=== PATIENT | female | born 1965 | race Caucasian/White ===

== ENCOUNTER → 2016-12-07 | Outpatient (CLI) | payer MEDICARE, MEDICAID ==
[~2016-12-07] MED LIST: ALPR2TAB2 PO; FLUO40CA9 PO; OXYC10TA32; PROP60CA PO; TRAZ100T15
== END | disposition home or self-care (01) ==
LOC: CFH 13:58
PROVIDERS: ATTEND Internal Medicine Cardiovascular Disease
DX: R07.9 Chest pain, unspecified (principal)
CPT/HCPCS: 93306

== ENCOUNTER 2018-06-13 11:14 | Emergency (ER) | payer MEDICARE, MEDICAID ==
[~2018-06-13] VITALS: Ht 167.6 cm; Wt 45.5 kg
[~2018-06-13 11:14] MED LIST changes: -OXYC10TA32; +OXYC10TA47; +TRAZ-137; -TRAZ100T15
[2018-06-13] MEDS ORDERED: HYDR12.53 PO (11:22)
[2018-06-13] MEDS ORDERED: CLOP75TA52 PO (11:22)
[2018-06-13] MEDS ORDERED: SODIUM CHLORIDE 0.9% 1,000 ML IV ONE (11:27)
[2018-06-13] MEDS ORDERED: ONDANSETRON ODT 4 MG PO ONE (11:30)
[2018-06-13] MEDS ORDERED: SODIUM CHLORIDE 0.9% 1,000ML IVBOLUS ONE (11:30)
[2018-06-13] MEDS ORDERED: SODIUM CHLORIDE FLUSH 10ML SYR IVF ONE (11:30)
[2018-06-13] MEDS ORDERED: ONDANSETRON ODT 4 MG ONE (11:34)
[2018-06-13 11:47] LABS: BASOPHILS # (AUTO) 0.05 x10^3/uL (0-0.1); BASOPHILS % (AUTO) 1 % (0-1); EOSINOPHILS # (AUTO) 0.12 x10^3/uL (0-0.4); EOSINOPHILS % (AUTO) 1 % (1-7); LYMPHOCYTES # (AUTO) 1.94 x10^3/uL (1-3.4); LYMPHOCYTES % (AUTO) 21 % (22-44); MD NO; MEAN CORPUSCULAR HEMOGLOBIN 35.5 pg (27.0-34.8); MEAN CORPUSCULAR HGB CONC 35.5 g/dL (32.4-35.8); MEAN CORPUSCULAR VOLUME 100.2 fL (80-100); MEAN PLATELET VOLUME 8.8 fL (7.4-10.4); MONOCYTES % (AUTO) 10 % (2-9); NEUTROPHILS # (AUTO) 6.44 x10^3/uL (1.8-6.8); NEUTROPHILS % (AUTO) 68 % (42-75); PLATELET COUNT 284 x10^3/uL (130-400); RED BLOOD COUNT 3.94 x10^6/uL (3.82-5.3); RED CELL DISTRIBUTION WIDTH 14.2 % (9.6-15.2)
[2018-06-13 12:00] LABS: ALANINE AMINOTRANSFERASE 30 U/L (12-78); ALBUMIN 5.1 g/dL (3.4-5.0); ANION GAP 12 mmol/L (5-15); CALCIUM 9.4 mg/dL (8.5-10.1); CHLORIDE 91 mmol/L (98-107)
[2018-06-13 12:09] LABS: ALKALINE PHOSPHATASE 104 U/L (45-117); BILIRUBIN,TOTAL 3.5 mg/dL (0.2-1.0); CREATININE 1.14 mg/dL (0.55-1.02); FREE T4 (FREE THYROXINE) 2.15 ng/dL (0.76-1.46); TOTAL PROTEIN 8.7 g/dL (6.4-8.2)
[2018-06-13 12:22] LABS: MICROSCOPIC AUTO
[2018-06-13 12:23] LABS: CULTURE INDICATED? NO
[2018-06-13] MEDS ORDERED: POTASSIUM CHLORIDE 20 MEQ TAB.ER.PRT ONE (12:55)
[2018-06-13 12:56] VITALS: BP 123/56
[2018-06-13] MEDS ORDERED: POTASSIUM CHLORIDE 20 MEQ TAB.ER.PRT PO ONE (13:00)
== END 2018-06-13 13:22 | disposition home or self-care (01) ==
LOC: ED 13:15
DX: E86.0 Dehydration (principal); E87.1 Hypo-osmolality and hyponatremia; E87.6 Hypokalemia; R55 Syncope and collapse; F41.1 Generalized anxiety disorder; I10 Essential (primary) hypertension; Z86.73 Personal history of transient ischemic attack (TIA), and cerebral infarction without residual deficits
CPT/HCPCS: 36415; 80053; 81001; 83735; 83880; 84100; 84439; 84443; 85025; 93005; 96360; 99285; J7030; Q0162

== ENCOUNTER → 2018-11-07 | Outpatient (CLI) | payer MEDICARE, MEDICAID ==
[~2018-11-07] MED LIST changes: +CLOP75TA52 PO; +HYDR12.517 PO
== END | disposition home or self-care (01) ==
LOC: CFH 13:54
PROVIDERS: ATTEND Nurse Practitioner Family
DX: I12.9 Hypertensive chronic kidney disease with stage 1 through stage 4 chronic kidney disease, or unspecified chronic kidney disease (principal); N18.3 Chronic kidney disease, stage 3 (moderate); M51.37 Other intervertebral disc degeneration, lumbosacral region
CPT/HCPCS: 74176

== ENCOUNTER 2019-04-03 12:11 | Inpatient (IN) | payer MEDICARE, MEDICAID ==
[~2019-04-03] VITALS: Ht 167.6 cm; Wt 45.9 kg
[2019-04-06 08:03] VITALS: BP 107/74
== END 2019-04-06 15:10 | disposition home or self-care (01) | DRG 644 ==
LOC: ED 13:34 → EDIP 13:35 → ED 13:54 → 4EST 14:48
PROVIDERS: ADMIT Internal Medicine; ATTEND Internal Medicine
DX: E27.40 Unspecified adrenocortical insufficiency (principal); I69.351 Hemiplegia and hemiparesis following cerebral infarction affecting right dominant side; N17.9 Acute kidney failure, unspecified; D75.89 Other specified diseases of blood and blood-forming organs; E86.0 Dehydration; E87.6 Hypokalemia; F41.1 Generalized anxiety disorder; G89.29 Other chronic pain; I07.1 Rheumatic tricuspid insufficiency; I12.9 Hypertensive chronic kidney disease with stage 1 through stage 4 chronic kidney disease, or unspecified chronic kidney disease; K59.09 Other constipation; N18.9 Chronic kidney disease, unspecified; Z87.891 Personal history of nicotine dependence; Z79.899 Other long term (current) drug therapy
CPT/HCPCS: 36415; 70551; 71045; 80048; 80053; 82306; 82533; 82607; 83735; 83880; 84100; 84443; 84484; 85025; 93005; 93306; 93880; 99285; G0378; J3480; Q0162; J7040

== ENCOUNTER 2019-06-06 08:33 | Outpatient (CLI) | payer MEDICARE, MEDICAID ==
[~2019-06-06 08:33] MED LIST changes: +ATOR-2 PO; +DESV50TA20 PO; +FLUD0.1T PO; +HYDR-3245 PO; +HYDR50TA3 PO; +HYDROCHLOROTH12.5 MG PO; +MECL12.52 PO; +ONDA4TAB12 PO; +PRAZ2CAP2 PO; +TEMA15CA PO; +TIZA2CAP PO; +ZOLP5TAB6 PO
== END 2019-06-06 23:59 | disposition home or self-care (01) ==
LOC: CFH 08:33
PROVIDERS: ATTEND Nurse Practitioner Primary Care
DX: R10.84 Generalized abdominal pain (principal)
CPT/HCPCS: 74176

== ENCOUNTER 2019-09-21 23:49 | Emergency (ER) | payer OTHER, MEDICARE ==
[~2019-09-21] VITALS: Ht 165.1 cm; Wt 47.7 kg
[2019-09-21 23:54] VITALS: BP 139/86
[2019-09-22] MEDS ORDERED: KETOROLAC 30 MG/1 ML IVPush ONE
[2019-09-22] MEDS ORDERED: METHOCARBAMOL 750 MG TABLET PO ONE
--- NOTE | 2019-09-22 00:17 | NUR ---
[employer] COMING BACK FOR PT, PT IS ON THE PHONE WITH INSURANCE AT THIS TIME.
[2019-09-22] MEDS ORDERED: METHOCARBAMOL 750 MG TABLET ONE (00:40)
[2019-09-22] MEDS ORDERED: KETOROLAC 30 MG/1 ML ONE (00:40)
--- NOTE | 2019-09-22 01:06 | NUR ---
PT MEDICATED PER MAR.
--- NOTE | 2019-09-22 01:41 | NUR ---
[employer] IN[employer] PT UNDERSTOOD PT UP AMBULATED TO CHECK OUT
== END 2019-09-22 01:46 | disposition home or self-care (01) ==
LOC: ED 09-22 01:35
DX: S16.1XXA Strain of muscle, fascia and tendon at neck level, initial encounter (principal); I10 Essential (primary) hypertension; Z86.73 Personal history of transient ischemic attack (TIA), and cerebral infarction without residual deficits; V89.2XXA Person injured in unspecified motor-vehicle accident, traffic, initial encounter; Y93.89 Activity, other specified; Y92.488 Other paved roadways as the place of occurrence of the external cause; Y99.8 Other external cause status
CPT/HCPCS: 72125; 96374; 99284; J1885

== ENCOUNTER 2020-11-01 23:42 | Emergency (ER) | payer MEDICARE, MEDICAID ==
[~2020-11-01] VITALS: Ht 162.6 cm; Wt 45.5 kg
[~2020-11-01 23:42] MED LIST changes: -HYDR-3245 PO; +HYDR1TAB53 PO; -HYDR50TA3 PO; +HYDR50TA6 PO; -MECL12.52 PO; +MECL12.590 PO; +ONDA-89 PO; -ONDA4TAB12 PO; -TRAZ-137; +TRAZ-175
--- NOTE | 2020-11-01 23:53 | NUR ---
bib ems, per ems pt found down on kitchen floor by and called 911. pt states taking 3 prescription dilaudid (2mg) today for back pain and sleeping pill. iv started per ems and 700 ml ns given. pt very drowsy. pt has baseline rightside weakness. pt on all monitors, vss, pt speaking in complete sentences, clear speech, having difficulty keeping eyes open, erp at bedside
--- NOTE | 2020-11-01 23:54 | NUR ---
ekg done upon arrival
[2020-11-02 00:29] LABS: BASOPHILS % (AUTO) 1 % (0-1); EOSINOPHILS % (AUTO) 3 % (1-7); LYMPHOCYTES % (AUTO) 41 % (22-44); MD NO; MEAN CORPUSCULAR HEMOGLOBIN 35.1 pg (27.0-34.8); MEAN PLATELET VOLUME 8.5 fL (7.4-10.4); MONOCYTES % (AUTO) 9 % (2-9); NEUTROPHILS % (AUTO) 46 % (42-75); PLATELET COUNT 156 x10^3/uL (130-400); RED BLOOD COUNT 2.97 x10^6/uL (3.82-5.3); RED CELL DISTRIBUTION WIDTH 13.9 % (9.6-15.2)
[2020-11-02 00:30] LABS: ALANINE AMINOTRANSFERASE 18 U/L (12-78); ALBUMIN 3.5 g/dL (3.4-5.0); ANION GAP 6 mmol/L (5-15); CALCIUM 8.4 mg/dL (8.5-10.1); CHLORIDE 104 mmol/L (98-107); CREATININE 1.01 mg/dL (0.55-1.02)
[2020-11-02] MEDS ORDERED: SODIUM CHLORIDE 0.9% 1,000ML IVBOLUS ONE (00:30)
--- NOTE | 2020-11-02 00:37 | NUR ---
PT ABLE TO GET UP WITHOUT ASSISTANCE TO BSC, PT HAD BM AND ABLE TO PROVIDE URINE SAMPLE. AT BEDSIDE. XRAY AT BEDSIDE WELL.
[2020-11-02 00:40] LABS: ALKALINE PHOSPHATASE 57 U/L (45-117); BILIRUBIN,TOTAL 0.6 mg/dL (0.2-1.0); TOTAL PROTEIN 5.8 g/dL (6.4-8.2); TROPONIN I < 0.015 ng/mL (0.000-0.045)
[2020-11-02 00:55] LABS: AMPHETAMINE SCREEN, URINE Negative (Negative); BARBITURATE SCREEN, URINE Negative (Negative); BENZODIAZEPINE SCREEN, URINE Positive (Negative); CANNABINOID SCREEN, URINE Negative (Negative); COCAINE SCREEN, URINE Negative (Negative); METHADONE SCREEN, URINE Negative (Negative); OPIATE SCREEN, URINE Positive (Negative)
--- NOTE | 2020-11-02 01:13 | NUR ---
PT RESTING IN BED, RESP EVEN/UNLABORED, VSS
[2020-11-02] MEDS ORDERED: POTASSIUM CHLORIDE 20 MEQ TAB.ER.PRT ONE (01:22)
[2020-11-02] MEDS ORDERED: POTASSIUM CHLORIDE 20 MEQ TAB.ER.PRT PO ONE (01:30)
[2020-11-02 02:20] VITALS: BP 96/52
== END 2020-11-02 02:38 | disposition home or self-care (01) ==
LOC: ED 11-02 02:00
DX: R55 Syncope and collapse (principal); T42.8X1A Poisoning by antiparkinsonism drugs and other central muscle-tone depressants, accidental (unintentional), initial encounter; T40.2X1A Poisoning by other opioids, accidental (unintentional), initial encounter; E87.6 Hypokalemia; R94.31 Abnormal electrocardiogram [ECG] [EKG]; R07.89 Other chest pain; R42 Dizziness and giddiness; I10 Essential (primary) hypertension; Z90.89 Acquired absence of other organs; Z86.73 Personal history of transient ischemic attack (TIA), and cerebral infarction without residual deficits; Z86.718 Personal history of other venous thrombosis and embolism; Y92.89 Other specified places as the place of occurrence of the external cause
CPT/HCPCS: 36415; 71045; 80053; 80307; 80320; 84443; 84484; 85025; 93005; 96360; 99285; J7030; G0480